=== PATIENT | female | born 1970 | race Caucasian/White ===

== ENCOUNTER 2019-05-02 18:04 | Emergency (ER) | payer MEDICAID ==
[~2019-05-02] VITALS: Ht 160 cm; Wt 68.9 kg
[2019-05-02 18:09] VITALS: Ht 160 cm; Wt 68.9 kg
[2019-05-02 18:39] LABS: BASOPHIL % 0.4 % (0-2); PLATELET COUNT 357 x10^3mcL (130-400)
[2019-05-02 18:51] LABS: CALCIUM 9.3 mg/dL (8.5-10.1); CARBON DIOXIDE 25.5 mmol/L (21-32); CHLORIDE SERUM 104 mmol/L (98-107); CREATININE SERUM 0.7 mg/dL (0.6-1.0); GFR1 > 60 mL/min; GLUCOSE SERUM 161 mg/dL (74-106); POTASSIUM SERUM 4.1 mmol/L (3.5-5.1); SODIUM SERUM 142 mmol/L (136-145)
[2019-05-02 18:56] LABS: ALBUMIN 3.7 g/dL (3.4-5.0); ALKALINE PHOSPHATASE 72 U/L (46-116); ALT/SGPT 22 U/L (14-59); AST/SGOT 17 U/L (15-37); BILIRUBIN TOTAL 0.2 mg/dL (0.20-1.00); TOTAL PROTEIN, SERUM 7.5 g/dL (6.4-8.2)
[2019-05-02 21:23] VITALS: BP 137/81
== END 2019-05-02 21:22 | disposition home or self-care (01) ==
LOC: ED 18:04
DX: R07.89 Other chest pain (principal); R61 Generalized hyperhidrosis
CPT/HCPCS: 36415; 82962